=== PATIENT | female | born 1960 ===

== ENCOUNTER 2016-09-04 15:40 | Inpatient (IN) | payer BC, OTHER ==
[~2016-09-04] VITALS: Ht 162.6 cm; Wt 76.3 kg
[2016-09-04 17:24] VITALS: PULSE 64
[2016-09-04] MEDS ORDERED: ACETAMINOPHEN 325 MG TAB PO PRN (18:30)
[2016-09-04] MEDS ORDERED: BACLOFEN 10 MG TAB PO PRN (18:30)
[2016-09-04] MEDS ORDERED: HYDROCODONE/APAP (5/325) TAB PO PRN (18:30)
[2016-09-04] MEDS ORDERED: NITROGLYCERIN (SL) 0.4 MG TAB SL PRN (18:30)
[2016-09-04] MEDS ORDERED: DOCUSATE SODIUM 100 MG CAP PO PRN (18:30)
[2016-09-04] MEDS ORDERED: morphine 2 MG INJ IV PRN (18:30)
[2016-09-04] MEDS ORDERED: NACL 0.9% 3 ML SYG IV SCH (18:30)
--- NOTE | 2016-09-04 18:37 | HP ---
DATE OF ADMISSION: 09/04/2016 CHIEF COMPLAINT: Chest pain and back pain. HISTORY OF PRESENT ILLNESS: The patient is a 56-year-old female, no past medical history. The traci ent states she began to have lower back pain, upper back pain radiating to shoulders and both chests starting yesterday morning. She states that when she sneezes the pain gets worse. She does state that she had a similar kind of pain several months ago where she went to an ER, which did an EKG whi ch was reportedly normal. The patient presented to an outside facility, where she had an EKG that s howed no signs of acute ischemia. Initial troponin was negative. The patient has no other complain ts at this time. She denies any cardiac issues. She denies any diabetes or hypertension. PAST MEDICAL HISTORY: Negative. PAST SURGICAL HISTORY: Hysterectomy. HOME MEDICATIONS: None. ALLERGIES: NO KNOWN DRUG ALLERGIES. FAMILY HISTORY: Denies. SOCIAL HISTORY: Denies any alcohol, tobacco or drug abuse. REVIEW OF SYSTEMS: A ____-point review of systems negative except for that in HPI. PHYSICAL EXAMINATION: VITAL SIGNS: Stable. GENERAL: No acute distress. Alert, oriented. HEENT: Normocephalic, atraumatic. CHEST: Clear to auscultation. CARDIOVASCULAR: Regular rate and rhythm. ABDOMEN: Nondistended, nontender, soft. EXTREMITIES: No clubbing, cyanosis, edema. LABORATORIES: Sodium is 141, K is 3.8, chloride is 104, CO2 is 28, BUN is 11, creatinine is 24, glu cose 95. LFTs within normal limits. Troponin is negative. D-dimer is 0.34. Hemoglobin 12.5, itz tocrit is 38.2, WBC is 5.1, platelets are 214. DIAGNOSTICS: EKG shows no signs of ischemia. ASSESSMENT AND PLAN: 1. Atypical chest pain. The patient has pain in her lower back, upper shoulders and bilateral ches ts. Her pain is exacerbated by sneezing. She has no cardiac history. No history of diabetes or hy pertension. The patient does state that she has stress in her life. Pain is likely musculoskeletal from stress. Will treat with muscle relaxants and morphine as needed. Will give aspirin, Lipitor while ruling out acute coronary syndrome. Will trend troponins and order an echo. Will check an A1c and lipid profile. 2. Prophylaxis. Ambulation. Dictated By: YFN ROSENBERG/LUIS Conf#: [id number] DID#: [id number]
[2016-09-04 20:00] VITALS: BP 134/77; RESP 20
[2016-09-04 20:28] VITALS: PULSE 79
[2016-09-04 20:30] VITALS: Ht 162.6 cm; Wt 76.3 kg
[2016-09-05] VITALS (7 sets, daily range): BP systolic 99–123; BP diastolic 60–74; PULSE 58–64; RESP 17–20
[2016-09-05 07:28] LABS: ADD SCAN DIFF NO
[2016-09-05 07:32] LABS: BASOPHILS % 0.4 % (0.0-2.0); EOSINOPHILS # 0.2 10^3/ul (0.0-0.5); EOSINOPHILS % 4.3 % (0.0-7.0); HEMATOCRIT 38.3 % (37.0-47.0); HEMOGLOBIN 12.3 g/dl (12.0-16.0); LYMPHOCYTES # 1.7 10^3/ul (0.8-2.9); MEAN CORPUSCULAR HEMOGLOBIN 28.5 pg (29.0-33.0); MEAN CORPUSCULAR HGB CONC 32.1 g/dl (32.0-37.0); MEAN CORPUSCULAR VOLUME 88.9 fl (82.0-101.0); MEAN PLATELET VOLUME 10.5 fl (7.4-10.4); MONOCYTE # 0.5 10^3/ul (0.3-0.9); MONOCYTES % 8.9 % (0.0-11.0); NEUTROPHIL # 2.7 10^3/ul (1.6-7.5); NEUTROPHILS % 53.2 % (39.0-77.0); PLATELET COUNT 263 10^3/UL (140-415); RED BLOOD COUNT 4.31 10^6/ul (4.20-5.40); RED CELL DISTRIBUTION WIDTH 12.4 % (11.5-14.5); WHITE BLOOD COUNT 5.2 10^3/ul (4.8-10.8)
[2016-09-05 07:58] LABS: CREATININE 0.76 mg/dl (0.44-1.00)
[2016-09-05 07:59] LABS: CALCIUM 9.2 mg/dl (8.4-10.2); CHOL/HDL RATIO 3.4 RATIO; PHOSPHORUS 5.1 mg/dl (2.5-4.9)
[2016-09-05 08:15] LABS: T3 UPTAKE 33.4 % (23.5-40.5)
--- NOTE | 2016-09-05 09:39 | PDOCDIS ---
Discharge Instructions CONDITION Patient Condition: Good HOME CARE INSTRUCTIONS: Diet Instructions: Regular ACTIVITY: Activity Restrictions: No Restrictions FOLLOW UP/APPOINTMENTS Appointments F/U WITH YOUR PCP IN 1-2 WEEKS YFN GUZMAN Sep 05, 2016 09:39
--- NOTE | 2016-09-05 11:16 | DS ---
DATE OF ADMISSION: 09/04/2016 DATE OF DISCHARGE: 09/05/2016 DISCHARGE DIAGNOSIS: Atypical chest pain, likely secondary to musculoskeletal pain from stress and anxiety, acute coronary syndrome ruled out. HOSPITAL COURSE: The patient is a 56-year-old female with no past medical history. The patient pre sents with diffuse body pain in lower back, upper back, shoulders and both sides of her chest. The patient has no cardiac history. The patient's A1c and liver panel are within normal limits. The angel poole's chest pain did resolve and her pain was mostly in her lower back. On the day of discharge, her troponins are negative x3. The patient was felt to be stable for discharge. On the day of disc harge, the patient's vitals, labs, physical exam were stable. She had no acute complaints and quest ions were answered. CONDITION ON DISCHARGE: Stable. DISPOSITION: Home. MEDICATIONS: No medications were prescribed. FOLLOWUP: The patient is to follow up with PCP in 1 to 2 weeks. Greater than 30 minutes was spent coordinating discharge of patient. Dictated By: YFN GUZMAN MD BS/NTS Conf#: [id number] DID#: [id number]
--- NOTE | 2016-09-05 16:27 | RADRPT ---
Echocardiogram Report Patient Name: KENIA CASTRO Gender: Female Date: 1960 Study Date: 05-Sep-2016 Air Route Controller: Mark Mac [facility] Location: 5540 Ref. Physician: YFN GUZMAN Quality: Good Procedures: Transthoracic echocardiogram with complete 2D, M-Mode, and doppler examination. Indications: Chest Pain. 2D/M Mode Doppler Measurement Value Normal Ranges Measurement Value Normal Ranges LVIDd 2D 4.8 3.5 - 5.6 cm AV Peak Maurice 1.3 m/sec LVIDs 2D 2.9 2.1 - 4.1 cm AV Peak PG 7.0 mmHg FS 2D 38.8 % AI Peak PG 60.0 mmHg LVPWd 2D 0.8 0.6 - 1.1 cm AI Peak Maurice 3.9 m/sec IVSd 2D 0.8 0.6 - 1.1 cm AI PHT 529.0 msec IVS/LVPW 2D 1.0 LVOT Peak Maurice 0.9 m/sec AoR Diam 2D 3.1 2.0 - 3.7 cm LVOT Peak PG 4.0 mmHg LA/Ao 2D 1 0 - 1 MV E Peak Maurice 0.6 m/sec EDV 2D 110.0 cm3 MV A Peak Maurice 0.7 m/sec ESV 2D 25.2 cm3 MV E/A 0.9 LA Dimen 2D 2.3 2.3 - 4.0 cm MV Decel Time 165 msec MV E/A 0.9 Findings Left Ventricle: Lower limits of normal systolic function. Normal left ventricular cavity size. Normal left ventricular wall thickness. Ejection fraction is visually estimated at 5055 %. Tissue Doppler/Mitral Doppler indices are consistent with impaired relaxation (Stage I diastolic dysfunction). Right Ventricle: Normal right ventricular size. Normal right ventricular systolic function. Left Atrium: The left atrium is normal in size. Right Atrium: The right atrium is normal in size. Mitral Valve: Normal appearance of the mitral valve. Mild mitral annular calcification. Trace mitral regurgitation. Aortic Valve: Aortic cusps appear mildly calcified. Trace aortic valve regurgitation. Tricuspid Valve: Normal appearance of the tricuspid valve. Unable to obtain RVSP due to minimal presence of tricuspid regurgitation. There is trace tricuspid regurgitation. Pulmonic Valve: Normal pulmonic valve appearance. Pericardium: Normal pericardium with no significant pericardial effusion. Aorta: Normal aortic root. IVC: Normal size and normal respiratory collapse consistent with normal right atrial pressure. Conclusions 1.The left ventricle is normal in size with lower limits of normal systolic function. 2.Estimated left ventricular ejection fraction of 50-55%. 3.Mild left ventricular diastolic dysfunction. Electronically Signed By: Issa Candelario 05-Sep-2016 16:26:12 -0700 Patient Name: KENIA CASTRO Study Date: 05-Sep-2016 [id number]
[2016-09-06] MEDS ORDERED: ASPIRIN 81 MG TAB PO SCH (09:00)
== END 2016-09-05 12:20 | disposition home or self-care (01) | DRG 313 ==
LOC: TEL 16:48 → MS4 16:57
PROVIDERS: ADMIT Family Medicine; ATTEND Family Medicine
DX: R07.89 Other chest pain (principal); F41.9 Anxiety disorder, unspecified; F43.0 Acute stress reaction
CPT/HCPCS: 80048; 80061; 83036; 83735; 84100; 84436; 84479; 84484; 85025; 93306